=== PATIENT | male | born 1965 | race Caucasian/White ===

== ENCOUNTER 2018-10-11 15:18 | Inpatient (IN) ==
[2018-10-11] MEDS ORDERED: ceFAZolin 2 GM IV; once IV.SIG SCH (18:00)
[2018-10-11] MEDS ORDERED: Methocarbamol 500 MG Tablet PO SCH (18:00)
[2018-10-11] MEDS ORDERED: Gabapentin 300 MG Capsule PO SCH (18:00)
[2018-10-11] MEDS ORDERED: Docusate Sodium 100 MG Capsule PO SCH (18:00)
[2018-10-11] MEDS ORDERED: Acetaminophen 325 MG Tablet PO PRN (18:42)
[2018-10-11 19:42] LABS: Hematocrit 44.1 % (39.0-51.0); Hemoglobin 15.2 gm/dL (13.0-17.0); Mean Corpuscular HGB Conc 34.6 % (32.0-36.0); Mean Corpuscular Volume 86.7 fL (80.0-100.0); Mean Platelet Volume 8.9 fL (7.0-11.0); Platelet Count 235 th/mm3 (150-450); Red Blood Count 5.09 mil/mm3 (4.50-5.90); Red Cell Distribution Width 12.7 % (11.6-17.2); White Blood Count 8.4 th/mm3 (4.0-11.0)
[2018-10-11 19:53] LABS: Activated Partial Thrombo Time 25.9 sec (23.4-31.7); Prothrombin Time 10.5 sec (9.8-11.6)
[2018-10-11 20:05] LABS: Calcium 9.4 mg/dL (8.5-10.1); Carbon Dioxide 28.6 meq/L (21.0-32.0); Potassium 3.5 meq/L (3.5-5.1)
[2018-10-11 20:15] LABS: Thyroid Stimulating Hormone 0.558 uIU/mL (0.358-3.740)
--- NOTE | 2018-10-11 20:22 | XR ---
EXAM DATE: 10/11/2018 8:17 PM EST AGE/SEX: 53 years / Male INDICATIONS: Evaluate for pneumonia, pneumothorax, or communicable disease. CLINICAL DATA: This is the patient's initial encounter. Patient reports that signs and symptoms have been present for 1 day and indicates a pain score of 0/10. MEDICAL/SURGICAL HISTORY: None. None. COMPARISON: No prior exams available for comparison. FINDINGS: AP and lateral views of the chest demonstrate elevation right hemidiaphragm with minimal density righ t lower lobe. No evidence of effusion. The cardiomediastinal contours are unremarkable. Osseous str uctures are intact. CONCLUSION: 1. Mild elevation right hemidiaphragm. 2. Minimal density right lower lobe likely atelectasis. Electronically signed by: Saravanan Campos MD 10/11/2018 8:20 PM EST
[2018-10-11 21:55] LABS: Bacteria,Urine Occasional /hpf; Bilirubin,Urine Negative (Negative); Clarity,Urine Hazy (Clear); Color,Urine Yellow (Yellw/Straw); Glucose,Urine (UA) Negative (Negative); Hyaline Casts,Urine 3 /lpf (0-3); Leukocyte Esterase,Urine Negative (Negative); Mucus,Urine Few /lpf (Occasional); Nitrite,Urine Negative (Negative); Specific Gravity,Urine 1.013 (1.002-1.035); Squamous Epithelial Cell,Urine <1 /hpf (0-5)
[2018-10-12] MEDS ORDERED: Propofol Inj 500 MG/50 ML Vial ONE ×2 (07:21→10:34)
[2018-10-12] MEDS ORDERED: Ketamine Inj 50 MG/5 ML Syringe IV.PUSH ONE (07:21)
[2018-10-12] MEDS ORDERED: Thrombin Topical Soln 5,000 UNIT Vial TOPICAL ONE ×2 (07:29→08:47)
[2018-10-12] MEDS ORDERED: Gelatin Size 100 Topical Foam ONE ×2 (07:30→08:47)
--- NOTE | 2018-10-12 08:32 | ECG ---
Date Performed: 10/11/2018 Time Performed: 18:29:46 PTAGE: 53 years EKG: Sinus rhythm Normal ECG NO PREVIOUS TRACING DOCTOR: Kelby He Interpretating Date/Time 10/12/2018 08:29:04
[2018-10-12] MEDS ORDERED: Lidocaine 1%/Epinephrine 1:100,000 Inj 30 ML Vial ONE (08:47)
[2018-10-12] MEDS ORDERED: ceFAZolin 1 GM Premix Inj 2 GM/100 ML PIGGYBACK IV.SIG ONE (08:47)
[2018-10-12] MEDS ORDERED: amLODIPine 10 MG Tablet PO SCH (09:00)
[2018-10-12] MEDS ORDERED: BACITRACIN 50000 UNIT IRRIGATION SCH ×2 (10:00)
[2018-10-12] MEDS ORDERED: [UNRECOGNIZED DRUG - OTHER] IRRIGATION SCH ×2 (10:00)
--- NOTE | 2018-10-12 11:39 | XR ---
EXAM DATE: 10/12/2018 11:20 AM EST AGE/SEX: 53 years / Male INDICATIONS: Post-op C5-C6 anterior cervical fusion. CLINICAL DATA: This is the patient's subsequent encounter. Patient reports that signs and symptoms h ave been present for 1 day and indicates a pain score of Nonresponsive. MEDICAL/SURGICAL HISTORY: Non-responsive. Non-responsive. COMPARISON: POI, MR CERVICAL SPINE W/O CONTRAST, 10/04/2018. . FINDINGS: Postsurgical changes are identified at C5-C6 following discectomy and anterior fusion. Vertebral body alignment is well-maintained radiopaque cage is identified within the disc space. CONCLUSION: Satisfactory postoperative appearance of the cervical spine following discectomy and anterior cervica l fusion at C5-6. Electronically signed by: Javan Houston MD 10/12/2018 11:38 AM EST
[2018-10-12] MEDS ORDERED: fentaNYL Citrate Inj 100 MCG/2 ML Ampul ONE (11:45)
[2018-10-12] MEDS ORDERED: Morphine Inj 4 MG/ML Vial ONE (11:46)
[2018-10-12] MEDS ORDERED: Bisacodyl 10 MG Supp RECTAL PRN (11:59)
[2018-10-12] MEDS ORDERED: Acetaminophen 325 MG Tablet PO PRN (11:59)
[2018-10-12] MEDS ORDERED: Labetalol HCl Inj 100 MG/20 ML Vial IV.PUSH PRN (11:59)
[2018-10-12] MEDS ORDERED: Calcium Gluconate Inj 1 GM in Sodium Chlor 0.9% Inj 100 ML IV.SIG PRN (11:59)
[2018-10-12] MEDS ORDERED: Zolpidem Tartrate 5 MG Tablet PO PRN (11:59)
[2018-10-12] MEDS ORDERED: Aluminum/Magnesium/Simethacone Susp 30 ML UDC PO PRN (11:59)
[2018-10-12] MEDS ORDERED: *morphine SULFATE 4 MG/ML PERIprocedure ONLY ONE ×2 (12:08→12:22)
[2018-10-12] MEDS ORDERED: amLODIPine 5 MG Tablet ONE (13:02)
[2018-10-12] MEDS: amLODIPine 10 MG Tablet PO SCH (13:05)
[2018-10-12 13:12] LABS: Baso % (Auto) 0.2 % (0.0-2.0); Eos % (Auto) 0.2 % (0.0-4.0); Hematocrit 42.9 % (39.0-51.0); Hemoglobin 15.1 gm/dL (13.0-17.0); Lymph # (Auto) 0.4 th/mm3 (1.0-4.8); Lymph % (Auto) 3.7 % (9.0-44.0); Mean Corpuscular HGB Conc 35.3 % (32.0-36.0); Mean Corpuscular Hemoglobin 31.2 pg (27.0-34.0); Mean Corpuscular Volume 88.4 fL (80.0-100.0); Mean Platelet Volume 9.2 fL (7.0-11.0); Mono # (Auto) 0.2 th/mm3 (0.0-0.9); Mono % (Auto) 1.6 % (0.0-8.0); Neut # (Auto) 9.8 th/mm3 (1.8-7.7); Neut % (Auto) 94.3 % (16.0-70.0); Platelet Count 198 th/mm3 (150-450); Red Blood Count 4.85 mil/mm3 (4.50-5.90); Red Cell Distribution Width 12.6 % (11.6-17.2); White Blood Count 10.4 th/mm3 (4.0-11.0)
[2018-10-12 13:22] LABS: Activated Partial Thrombo Time 26.4 sec (23.4-31.7); INR 1.1 Ratio; Prothrombin Time 10.7 sec (9.8-11.6)
[2018-10-12 13:29] LABS: Calcium 8.6 mg/dL (8.5-10.1); Carbon Dioxide 26.7 meq/L (21.0-32.0); Potassium 3.5 meq/L (3.5-5.1)
--- NOTE | 2018-10-12 13:34 | P.PCN ---
Date of procedure: 10/12/18 Pre-op diagnosis: C5/6 spondylotic radiculopathy Post-op diagnosis: same Procedure: C5/6 anterior cervical discectomy and fusion with spinal instrumentation Anesthesia: HELEN Surgeon: Shawn Herrera [employer] Associate: Gurvinder Wong Estimated blood loss (mL): 50 IV fluids (mL): 1,600 Condition: stable Disposition: PACU
[2018-10-12] MEDS: Senna/Docusate Sodium 8.6/50 MG Tablet PO SCH (20:39)
[2018-10-13] MEDS: Senna/Docusate Sodium 8.6/50 MG Tablet PO SCH (08:00)
[2018-10-13] MEDS: amLODIPine 10 MG Tablet PO SCH (08:00)
--- NOTE | 2018-10-13 11:29 | CT ---
EXAM DATE: 10/13/2018 11:15 AM EST AGE/SEX: 53 years / Male INDICATIONS: Status post recent cervical fusion. Neck pain. CLINICAL DATA: This is the patient's initial encounter. Patient reports that signs and symptoms have been present for 2 days and indicates a pain score of 5/10. MEDICAL/SURGICAL HISTORY: Hypertension. . C5/C6 anterior cervical discectomy w/fusion RADIATION DOSE: 21.3 CTDI (mGy) COMPARISON: No prior exams available for comparison. TECHNIQUE: Contiguous axial images were obtained using helical multirow detector technique. The vol umetric data was post-processed with multiplanar reconstruction in oblique axial, sagittal, and coron al planes. Using automated exposure control and adjustment of the mA and/or kV according to patient s ize, radiation dose was kept as low as reasonably achievable to obtain optimal diagnostic quality marylin ges. DICOM format image data is available electronically for review and comparison. FINDINGS: Vertebrae: Normal vertebral body height. A small amount of gas and soft tissue swelling in the verte bral soft tissues. Discs: The patient is again noted be status post anterior fusion at the C5-6 level with intact screw plate fixation device. Bone grafting material and markers are noted in the interspace a small collect ion of gas. Degenerative disc changes again noted with hypertrophic spurring at the C3-4 through C6-7 levels. Alignment: Normal. No subluxation. C2-3: The bony spinal canal is normal in size. No evidence of disc bulge or herniation. The neural foramina are bilaterally patent. C3-4: There is a mild posterior disc osteophyte complex with mild mass effect on the anterior thecal sac. There is mild narrowing of the left neural foramina. C4-5: There is a mild posterior disc osteophyte complex with mild mass effect on the anterior thecal sac greatest in the left parasagittal region. The neural foramina are patent. C5-6: Status post anterior fusion with screw plate fixation device and postsurgical changes. There i s moderate narrowing of the right neural foramina. The left is patent. There is a disc osteophyte com plex greatest in the right parasagittal region. There is mass effect on the anterior thecal sac. C6-7: Mild posterior disc osteophyte complex with mild flattening of the anterior thecal sac. There is mild narrowing of the neural foramina. There is hypertrophic ridging in the left parasagittal sada on just below the disc margin with mass effect left side of the thecal sac. C7-T1: The bony spinal canal is normal in size. No evidence of disc bulge or herniation. The neura l foramina are bilaterally patent. CONCLUSION: 1. Status post recent anterior cervical fusion at the C5-6 level with expected postsurgical changes. 2. Posterior disc osteophyte complexes at the C3-4 through C6-7 levels with mass effect on the theca l sac. 3. Narrowing of the neural foramina at multiple levels. Electronically signed by: Reji Michel MD 10/13/2018 11:28 AM EST
[2018-10-13] MEDS: Heparin - SQ 10,000 UNITS/ML Vial SQ SCH ×2 (11:43→19:34)
[2018-10-15 09:12] VITALS: BP 122/86; PULSE 66; RESP 16; TEMP 98.3; O2SAT 97
--- NOTE | 2018-10-21 15:13 | MP ---
cc: Shawn Herrera MD DATE OF OPERATION: 10/11/2018 PREOPERATIVE DIAGNOSIS: C5-C6 cervical spondylosis with radiculopathy. POSTOPERATIVE DIAGNOSIS: Cervical spondylosis with radiculopathy. PROCEDURE: C5-C6 anterior cervical diskectomy and fusion with microscope and neuromonitoring. ANESTHESIA: General endotracheal anesthesia. ESTIMATED BLOOD LOSS: Less than 25 mL. COMPLICATIONS: None. SURGEON: Shawn Herrera MD CO-SURGEON: Gurvinder Wong MD CONDITION: Back to the recovery room, extubated, awake, alert, following commands, moving all 4 extremities well. No change from his preoperative state. INDICATIONS: The patient is a pleasant 53-year-old male who was referred to the neurosurgery service at [facility] for evaluation of chief complaint of chronic progressively worsening pain with approximately 2-year history, which most recently has involved radiation to the right upper extremity with radicular findings including C5 distribution numbness and weakness. The patient has failed conservative therapy and had nerve blocks as well as physical therapy on multiple occasions over the past 2 years. Initially, he did well on his first a course of conservative management; however, over the last year, he has had chronic progressively worsening spondylosis. Imaging studies have shown a right-sided C5-C6 disk herniation with significant compression of the spinal cord and spinal nerve root. The patient failed conservative therapy. Risks, benefits, and options were discussed with the patient and his . They include, but are not limited to infection, CSF leak, nerve injury, spinal cord injury, failure to relieve symptoms, exacerbation of symptoms, paresis, paralysis, hemorrhage, reoperation, possible were all explained. The patient and his indicated they understood and agreed with the plan of care. All questions were answered. PROCEDURE IN DETAIL: The patient was taken to the operating room from the holding room after peripheral IVs were placed. He was subsequently endotracheally intubated and general endotracheal anesthesia ensued. He was placed on the operating table in supine position with all pressure points padded with his head in a donut in slight extension and a small transverse shoulder roll. The left anterior cervical region of the spine was shaved, prepped and draped in the usual sterile fashion. A sterile surgical marking pen was used to outline the sternal notch in the midline to the anterior border of the sternocleidomastoid muscle (SCM). The horizontal incision was extended below the thyroid cartilage from the midline to the anterior border of the SCM. This was infiltrated with 10 mL of 1% lidocaine with epinephrine. A #10 blade was brought in the field, cutting sharply down to the platysma. Hemostasis achieved with bipolar electrocautery device. Weitlaner self-retaining retractors was placed after undermining the platysma. The platysma was then further incised with a combination of Bovie electrocautery and Metzenbaum scissors. The superficial cervical fascia was identified, entered with gentle dissection. The strap muscles were then identified and blunt finger dissection through the fascial planes allowed us to identify the omohyoid muscle going up above it. We then retracted the tracheoesophageal complex medially and the carotid vascular bundle laterally. The deep cervical fascia was incised with the Metzenbaum scissors and bipolar electrocautery. A peanut was used as well. The longus colli were identified. A prominent anterior osteophyte was also noted. A dog legged bent spinal needle was then placed in the disk space at the lip of the osteophyte. AP and lateral fluoroscopy confirmed that we were at the C5-C6 level. The annulus was incised with a #11 blade. Microdiskectomy ensued with various sized micro pituitary rongeurs. The microscope was then brought into the field and the [place] pins were placed as well as self-retaining retractors. The remaining disk was removed with a combination of various size straight and up-angled curettes. The high-speed air drill with the 3 mm bur was used to drill out the hard disk and spondylosis. A calcified posterior longitudinal ligament was noted. This was resected with 1 and 2 mm Kerrison punches. Partial posterior osteophytectomy as well as bilateral foraminotomies were performed. Hemostasis achieved with Surgiflo and Gelfoam. An appropriate-sized piece of autologous bone was placed in the disk space and position was checked with AP and lateral fluoroscopy. Next, a [employer] anterior cervical plate was secured in the usual fashion. This was also viewed through direct microscopic as well as fluoroscopic visualization. There were no changes in EMG or SSEP neurophysiological studies that were run continuously during the surgery. After we were satisfied that the plate was in good position with good sagittal alignment, the incision was then irrigated with copious antibiotic irrigation followed by Betadine. It was then closed in anatomic layers using 2-0 inverted interrupted Vicryl sutures for the platysma, followed by 3-0 inverted interrupted Vicryl sutures for the subcutaneous tissue with Mastisol and Steri-Strips for the skin. Bacitracin ointment and Telfa and Tegaderm were used for the dressing. At the end of the operation, sponge and needle counts were correct. The patient tolerated the procedure well and was taken back to the recovery room, extubated, awake, alert, following commands, moving all 4 extremities well and no change from his preoperative state. Shawn Herrera MD RT/viridiana , 02:21 PM , 02:37 PM
== END 2018-10-13 20:10 | disposition home or self-care (01) ==
LOC: HSDI 10-12 07:54 → N06 10-12 14:48
PROVIDERS: ADMIT Family Medicine; ATTEND Neurological Surgery